=== PATIENT | male | born 1945 | race African-American/Black ===

== ENCOUNTER 2021-07-03 12:13 | Emergency (ER) | payer MEDICARE, BC ==
[~2021-07-03] VITALS: Ht 162.6 cm; Wt 53.4 kg
[2021-07-03 13:22] LABS: BASOPHILS % (AUTO) 1 % (0-1); EOSINOPHILS % (AUTO) 1 % (1-7); LYMPHOCYTES % (AUTO) 19 % (22-44); MEAN CORPUSCULAR HEMOGLOBIN 29.3 pg (27.5-34.5); MEAN CORPUSCULAR HGB CONC 32.9 g/dL (33.2-36.2); MEAN PLATELET VOLUME 7.1 fL (7.4-10.4); MONOCYTES % (AUTO) 11 % (2-9); NEUTROPHILS % (AUTO) 68 % (42-75); PLATELET COUNT 238 x10^3/uL (130-400); RED BLOOD COUNT 6.31 x10^6/uL (4.38-5.82); RED CELL DISTRIBUTION WIDTH 15.5 % (9.4-14.8)
[2021-07-03] MEDS ORDERED: RISPERIDONE 1 MG TABLET PO ONE (13:30)
--- NOTE | 2021-07-03 13:30 | NUR ---
PT MEDICATED PER Jan,A COLLECTED AND SENT TO LAB. PT DENIES NEEDS
[2021-07-03 13:33] LABS: ALBUMIN 3.3 g/dL (3.4-5.0); ANION GAP 4 mmol/L (5-15); CALCIUM 9.8 mg/dL (8.5-10.1); CHLORIDE 103 mmol/L (98-107); CREATININE 1.08 mg/dL (0.7-1.3); SALICYLATE LEVEL < 1.7 mg/dL (2.8-20.0)
[2021-07-03] MEDS ORDERED: RISPERIDONE 2 MG TABLET ONE (13:39)
--- NOTE | 2021-07-03 13:45 | NUR ---
PT TO SECURE RM AT THIS TIME, PER TREE TRIMMER PT HAVING SI, PT THEN HAD MEETING WITH NOELLE RINCON AND NOW DENIES SI AND WOULD LIKE TO VOLUNTARY GO TO [place]. PT RETURNED ALL BELONGINGS.
[2021-07-03 15:01] LABS: AMPHETAMINE SCREEN, URINE Negative (Negative); BARBITURATE SCREEN, URINE Negative (Negative); BENZODIAZEPINE SCREEN, URINE Negative (Negative); CANNABINOID SCREEN, URINE Negative (Negative); COCAINE SCREEN, URINE Negative (Negative); METHADONE SCREEN, URINE Negative (Negative); OPIATE SCREEN, URINE Negative (Negative)
--- NOTE | 2021-07-03 15:40 | NUR ---
THROUGHPUT: PACKET FAXED TO ALL FACILITIES
--- NOTE | 2021-07-03 16:34 | NUR ---
Yohana on [facility] denied the pt due to insurance
[2021-07-03] MEDS ORDERED: FLUT12HF3 IH (17:54)
[2021-07-03] MEDS ORDERED: RISP0.5T62 PO (17:54)
[2021-07-03] MEDS ORDERED: ALBU90AE2 INH (17:54)
[2021-07-03] MEDS ORDERED: albuterol inh INH (17:54)
[2021-07-03] MEDS ORDERED: TIOT18CA INH (17:54)
--- NOTE | 2021-07-03 17:54 | NUR ---
late entry, REC'D RPT FROM [facility] AND PT MOVED TO ROOM 3. PT TO BE ON LEGAL HOLD, BELONGINGS LIST COMPLETED (LG SUITCASE, SMALL BACKPACK, PHONE, AIR CONDITIONING INSTALLER, MEDS, GLASSES) ORIGINAL BELONGINGS LIST PLACED IN CHART. COPY PLACED WITH BELONGINGS IN LOCKER. PT ON [facility] NOTED, VERY PLEASANT, DENIES SI/HI AT THIS TIME. SITTER AT DOORWAY WITH PT IN VIEW. CALL LIGHT W/I REACH. MEAL TRAY ORDERED.
--- NOTE | 2021-07-03 19:05 | NUR ---
MANUELA RPT TO JOSSY PERRY
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
--- NOTE | 2021-07-03 19:19 | NUR ---
Pt resting at this time. Personal belongings locked up per day shift JOSSY Gonzalez. Pt in no acute distress. Watching TV. Respirations even and unlabored. Pt awaiting IP psych placement. Sitter at bedside, in clear line of sight of patient.
--- NOTE | 2021-07-03 22:26 | NUR ---
packet faxed to all 6 [facility] facilities.
--- NOTE | 2021-07-03 23:39 | NUR ---
Spoke w/ Essie, from [facility]. Report given. States she will talk to their attending doc and will call back.
--- NOTE | 2021-07-03 23:48 | NUR ---
ANY accepting; JOSSY Ortiz. Dr. Simons.
[2021-07-04 00:12] VITALS: BP 109/71
--- NOTE | 2021-07-04 00:51 | NUR ---
Break RN: AMIE arrived to picking tech patient to be transferred to [facility]. Belongings sent with EMS/patient.
== END 2021-07-04 00:53 | disposition home or self-care (01) ==
LOC: ED 13:07 → EDIP 16:59 → UNDOADMIN 16:59 → ED 07-04 00:47
DX: R45.851 Suicidal ideations (principal); F32.9 Major depressive disorder, single episode, unspecified; F17.210 Nicotine dependence, cigarettes, uncomplicated
CPT/HCPCS: 36415; 80048; 80299; 80307; 80320; 80329; 82040; 85025; 99285; G0480